=== PATIENT | female | born 1950 | race Caucasian/White ===

== ENCOUNTER 2019-11-10 07:57 | Day surgery (SDC) | payer MEDICARE, OTHER ==
[~2019-11-10] VITALS: Ht 167.6 cm; Wt 65.8 kg
[2019-11-10] MEDS ORDERED: FLUT1DIS2 IH (08:39)
[2019-11-10] MEDS ORDERED: AMLO2.5T45 PO (08:39)
[2019-11-10] MEDS ORDERED: UBID10CA4 PO (08:39)
[2019-11-10] MEDS ORDERED: ASPI-1497 PO (08:39)
[2019-11-10] MEDS ORDERED: ATOR10TA PO (08:39)
[2019-11-10] MEDS ORDERED: LIDOCAINE HCL 1% 20ML VIAL (Pyxis) INJ ONE (09:26)
[2019-11-10] MEDS ORDERED: ASPIRIN/SOD BICARB/CITRIC ACID 324MG TAB EFF ONE (09:29)
[2019-11-10] MEDS ORDERED: FENTANYL CITRATE/PF 50MCG/ML 2ML VIAL ONE (09:39)
[2019-11-10] MEDS ORDERED: IOHEXOL-300 100 ML BOTTLE ONE (09:39)
[2019-11-10] MEDS ORDERED: MIDAZOLAM HCL 2 MG/2 ML VIAL ONE (09:39)
[2019-11-10] MEDS ORDERED: IODIXANOL 320MG/ML 100 ML BOTTLE IV ONE (09:39)
[2019-11-10] MEDS ORDERED: MORPHINE SULFATE 2 MG/ML CPJ (NOT FOR IM USE) IV PRN (10:15)
[2019-11-10] MEDS ORDERED: ACETAMINOPHEN 325MG TABLET PO PRN (10:15)
[2019-11-10] MEDS ORDERED: ONDANSETRON HCL 4MG/2ML INJ IV PRN (10:15)
[2019-11-10] MEDS ORDERED: ATROPINE SULFATE 1MG/10ML SYR IV PRN (10:15)
[2019-11-10 10:47] LABS: BG BASE EXCESS -0.7 mmol/L (-2.0-2.0); BG CARBOXYHEMOGLOBIN 0.2 % (0.5-1.5); BG DEOXYHEMOGLOBIN 1.7 % (0.0-5.0); BG FRACTION INSPIRED OXYGEN 32; BG HCO3 ACT 20.8 mmol/L (22.0-26.0); BG METHEMOGLOBIN 0.2 % (0.0-1.5); BG OXYGEN SATURATION 98.3 % (92.0-98.5); BG OXYHEMOGLOBIN 97.9 % (94.0-97.0); BG PCO2 26.6 mmHg (35.0-45.0); BG PH 7.512 (7.350-7.450); BG PO2 123.4 mmHg (75.0-100.0); BG SAMPLE SITE RIGHT RADIAL; BG TOTAL HEMOGLOBIN 13.6 g/dL (12.0-18.0); BG VENT MODE NASAL CANNULA
[2019-11-10] MEDS ORDERED: NITROGLYCERIN 50MCG/ML 10ML VIAL (CATH LAB) IV ONE (15:58)
[2019-11-10] MEDS ORDERED: HEPARIN SODIUM 1,000 UNIT/1ML VIAL IV ONE (15:58)
[2019-11-10] MEDS ORDERED: NICARDIPINE 100MCG/ML 10ML VIAL (CATH LAB) IV ONE (15:58)
== END 2019-11-10 15:20 | disposition home or self-care (01) ==
LOC: CCL 07:57
PROVIDERS: ATTEND Specialist
DX: I25.10 Atherosclerotic heart disease of native coronary artery without angina pectoris (principal); R93.1 Abnormal findings on diagnostic imaging of heart and coronary circulation; J45.909 Unspecified asthma, uncomplicated; E78.5 Hyperlipidemia, unspecified; Z79.82 Long term (current) use of aspirin; Z79.899 Other long term (current) drug therapy; Z95.0 Presence of cardiac pacemaker
CPT/HCPCS: 36600; 82375; 82805; 93458; 99152; C1769; C1887; C1893; J1644; J2250; J3010; J3490; Q9967; G0500

== ENCOUNTER 2020-11-08 07:53 | Inpatient (IN) | payer MEDICARE, OTHER ==
[~2020-11-08] VITALS: Ht 167.6 cm; Wt 68.0 kg
[~2020-11-08 07:53] MED LIST: AMLO2.5T45 PO; ASPI-1497 PO; ATOR10TA PO; FLUT1DIS2 IH; UBID10CA4 PO
[2020-11-08] MEDS ORDERED: *PATIENT'S OWN MEDICATION STORAGE XX SCH (11:45)
[2020-11-08 12:00] VITALS: BP 155/63
[2020-11-08] MEDS ORDERED: ONDANSETRON HCL 4MG/2ML INJ IV PRN (12:00)
[2020-11-08 13:07] LABS: BASOPHILS % 0.3 % (0.0-2.0); EOSINOPHILS % 2.9 % (0.0-5.0); HEMATOCRIT. 39.6 % (36.0-48.0); HEMOGLOBIN. 13.3 g/dL (12.0-16.0); LYMPHOCYTES % 20.7 % (20.0-50.0); MEAN CORPUSCULAR HEMOGLOBIN 29.5 pg (28.0-32.0); MEAN PLATELET VOLUME 9.1 fl (7.4-10.4); MONOCYTES % 5.7 % (2.0-8.0); NEUTROPHILS % 70.4 % (40.0-76.0); PLATELET 206 x1000/uL (130-400); RED BLOOD CELL COUNT 4.49 mill/uL (4.2-5.4); RED CELL DISTRIBUTION WIDTH 14.3 % (11.6-14.6)
[2020-11-08 13:13] LABS: PARTIAL THROMBOPLASTIN TIME 25.6 sec (23.4-31.0); PROTHROMBIN TIME 10.4 sec (9.6-11.0)
[2020-11-08 13:16] LABS: CHLORIDE 113 mEq/L (98-107)
[2020-11-08 13:50] VITALS: BP 155/63
[2020-11-08] MEDS ORDERED: CLONIDINE 0.1MG TABLET PO PRN (15:00)
[2020-11-08 16:00] VITALS: BP 140/65
[2020-11-08] MEDS: FAMOTIDINE 20MG TABLET PO SCH (17:37)
[2020-11-08] MEDS: ATORVASTATIN CALCIUM 20MG TABLET PO SCH (17:38)
[2020-11-08] MEDS: AMLODIPINE 10MG TABLET PO SCH (17:39)
[2020-11-08 20:00] VITALS: BP 135/52
[2020-11-08] MEDS ORDERED: ATORVASTATIN CALCIUM 10MG TABLET PO SCH (21:00)
[2020-11-09] VITALS (25 sets, daily range): BP systolic 110–165; BP diastolic 59–81
[2020-11-09 05:51] LABS: CHLORIDE 112 mEq/L (98-107)
[2020-11-09 06:30] LABS: BASOPHILS % 0.4 % (0.0-2.0); EOSINOPHILS % 3.8 % (0.0-5.0); HEMATOCRIT. 43.6 % (36.0-48.0); HEMOGLOBIN. 14.7 g/dL (12.0-16.0); LYMPHOCYTES % 28.5 % (20.0-50.0); MEAN CORPUSCULAR HEMOGLOBIN 29.8 pg (28.0-32.0); MEAN CORPUSCULAR VOLUME 88.5 fL (81.0-99.0); MEAN PLATELET VOLUME 8.9 fl (7.4-10.4); MONOCYTES % 6.8 % (2.0-8.0); NEUTROPHILS % 60.5 % (40.0-76.0); PLATELET 248 x1000/uL (130-400); RED BLOOD CELL COUNT 4.92 mill/uL (4.2-5.4); RED CELL DISTRIBUTION WIDTH 14.5 % (11.6-14.6)
[2020-11-09] MEDS ORDERED: AMLODIPINE 2.5MG TABLET PO SCH (09:00)
[2020-11-09] MEDS ORDERED: FENTANYL CITRATE/PF 50MCG/ML 2ML VIAL ONE ×2 (09:53→11:46)
[2020-11-09] MEDS ORDERED: ROCURONIUM BROMIDE 10MG/ML VIAL 5ML IV ONE ×2 (09:53→13:02)
[2020-11-09] MEDS ORDERED: PROPOFOL 200MG/20ML VIAL IV ONE (09:53)
[2020-11-09] MEDS ORDERED: SUCCINYLCHOLINE CHLORIDE 200MG/10ML IV ONE (09:54)
[2020-11-09] MEDS ORDERED: MIDAZOLAM HCL 2 MG/2 ML VIAL ONE (09:54)
[2020-11-09] MEDS ORDERED: ONDANSETRON HCL 4MG/2ML INJ ONE (09:54)
[2020-11-09] MEDS ORDERED: GLYCOPYRROLATE 0.2 MG/ML 2ML VIAL ONE (09:54)
[2020-11-09] MEDS ORDERED: PHENYLEPHRINE HCL 10 MG/ML 1ML (IV VIAL) IV ONE ×2 (09:54→09:55)
[2020-11-09] MEDS ORDERED: STERILE WATER FOR INJECTION 10ML VIAL ONE (09:55)
[2020-11-09] MEDS ORDERED: LIDOCAINE HCL/PF 1% 10 MG/ML 5ML VIAL ONE (09:55)
[2020-11-09] MEDS ORDERED: EPHEDRINE SULFATE 50MG/ML VIAL ONE (09:55)
[2020-11-09] MEDS ORDERED: BACITRACIN 15GM TUBE TOP ONE (09:57)
[2020-11-09] MEDS ORDERED: BUPIVACAINE HCL 0.5% (5MG/ML) 50ML ONE (09:58)
[2020-11-09] MEDS ORDERED: SKIN ADHESIVE 0.7 GM EA TOP ONE ×2 (09:58→12:21)
[2020-11-09] MEDS ORDERED: BACITRACIN 50,000 UNITS/VIAL ONE (09:58)
[2020-11-09] MEDS ORDERED: SODIUM CHLORIDE 0.9% INJ 10ML FLUSH IVF ONE (09:58)
[2020-11-09] MEDS ORDERED: CEFAZOLIN SODIUM 1000MG/VIAL ONE (11:33)
[2020-11-09] MEDS ORDERED: NEOSTIGMINE METHYLSULFATE 1MG/ML 10 ML VIAL ONE (13:20)
[2020-11-09] MEDS ORDERED: SODIUM CHLORIDE 0.9% 1,000 ML IV ONE (14:15)
[2020-11-09] MEDS ORDERED: MORPHINE SULFATE 2 MG/ML CPJ (NOT FOR IM USE) IV PRN (14:15)
[2020-11-09] MEDS ORDERED: MEPERIDINE HCL/PF 25MG/ML CPJ IV PRN (14:15)
[2020-11-09] MEDS ORDERED: ONDANSETRON HCL 4MG/2ML INJ IV PRN (14:15)
[2020-11-09] MEDS ORDERED: HYDROMORPHONE HCL/PF 2MG/ML (OR) ONE (14:31)
[2020-11-09] MEDS: HYDROMORPHONE HCL/PF 2MG/ML CPJ IV PRN ×4 (14:37→16:38)
[2020-11-09 20:10] LABS: HEMATOCRIT. 40.7 % (36.0-48.0); HEMOGLOBIN. 13.1 g/dL (12.0-16.0); MEAN CORPUSCULAR HEMOGLOBIN 28.7 pg (28.0-32.0); MEAN CORPUSCULAR VOLUME 88.9 fL (81.0-99.0); MEAN PLATELET VOLUME 8.6 fl (7.4-10.4); PLATELET 196 x1000/uL (130-400); RED BLOOD CELL COUNT 4.58 mill/uL (4.2-5.4); RED CELL DISTRIBUTION WIDTH 14.2 % (11.6-14.6)
[2020-11-09 20:13] LABS: CHLORIDE 114 mEq/L (98-107)
[2020-11-09 20:15] LABS: PROTHROMBIN TIME 10.8 sec (9.6-11.0)
[2020-11-09] MEDS: FAMOTIDINE 20MG TABLET PO SCH (20:39)
[2020-11-09] MEDS: TRAMADOL 50MG TABLET PO PRN (20:40)
[2020-11-09] MEDS: AMLODIPINE 10MG TABLET PO SCH (20:40)
[2020-11-09 20:42] LABS: PLATELET ESTIMATE NORMAL
[2020-11-09] MEDS: ATORVASTATIN CALCIUM 20MG TABLET PO SCH (21:34)
[2020-11-10] VITALS (39 sets, daily range): BP systolic 97–169; BP diastolic 51–100
[2020-11-10] MEDS: TRAMADOL 50MG TABLET PO PRN (03:16)
[2020-11-10 06:52] LABS: BASOPHILS % 0.7 % (0.0-2.0); HEMATOCRIT. 38.1 % (36.0-48.0); HEMOGLOBIN. 12.6 g/dL (12.0-16.0); MEAN CORPUSCULAR HEMOGLOBIN 28.9 pg (28.0-32.0); MEAN CORPUSCULAR VOLUME 87.8 fL (81.0-99.0); MEAN PLATELET VOLUME 9.5 fl (7.4-10.4); MONOCYTES % 7.4 % (2.0-8.0); NEUTROPHILS % 83.9 % (40.0-76.0); PLATELET 181 x1000/uL (130-400); RED BLOOD CELL COUNT 4.35 mill/uL (4.2-5.4); RED CELL DISTRIBUTION WIDTH 14.7 % (11.6-14.6)
[2020-11-10] MEDS: ACETAMINOPHEN 325MG TABLET PO PRN (07:11)
[2020-11-10 08:25] LABS: CHLORIDE 111 mEq/L (98-107)
[2020-11-10] MEDS: MORPHINE SULFATE 2 MG/ML CPJ (NOT FOR IM USE) IV PRN ×2 (12:00→16:35)
[2020-11-10] MEDS: FAMOTIDINE 20MG TABLET PO SCH (18:32)
[2020-11-10] MEDS: AMLODIPINE 10MG TABLET PO SCH (18:32)
[2020-11-10] MEDS: ATORVASTATIN CALCIUM 20MG TABLET PO SCH (18:32)
[2020-11-10] MEDS ORDERED: MORPHINE SULFATE 2 MG/ML CPJ (NOT FOR IM USE) IV SCH (20:30)
[2020-11-11] VITALS (18 sets, daily range): BP systolic 100–154; BP diastolic 53–73
[2020-11-11] MEDS: ACETAMINOPHEN 325MG TABLET PO PRN (06:03)
[2020-11-11 06:42] LABS: BASOPHILS % 0.5 % (0.0-2.0); EOSINOPHILS % 1.2 % (0.0-5.0); HEMATOCRIT. 40.3 % (36.0-48.0); HEMOGLOBIN. 13.5 g/dL (12.0-16.0); LYMPHOCYTES % 11.8 % (20.0-50.0); MEAN CORPUSCULAR HEMOGLOBIN 29.2 pg (28.0-32.0); MEAN CORPUSCULAR VOLUME 87.3 fL (81.0-99.0); MEAN PLATELET VOLUME 8.5 fl (7.4-10.4); NEUTROPHILS % 78.5 % (40.0-76.0); PLATELET 232 x1000/uL (130-400); RED BLOOD CELL COUNT 4.62 mill/uL (4.2-5.4); RED CELL DISTRIBUTION WIDTH 14.4 % (11.6-14.6)
[2020-11-11 07:16] LABS: CHLORIDE 107 mEq/L (98-107)
[2020-11-11] MEDS ORDERED: POTASSIUM CHLORIDE 20MEQ TABLET SR PO NR (10:30)
== END 2020-11-11 13:45 | disposition home or self-care (01) | DRG 165 ==
LOC: 6EST 07:53 → CVICU 11-09 13:19 → 3WST 11-09 17:00 → 5EST 11-09 17:03
PROVIDERS: ADMIT Internal Medicine; ATTEND Internal Medicine
PROC: 0BJ08ZZ Inspection of Tracheobronchial Tree, Via Natural or Artificial Opening Endoscopic (ICD-10-PCS; principal; 2020-11-09)
PROC: 0BBJ4ZZ Excision of Left Lower Lung Lobe, Percutaneous Endoscopic Approach (ICD-10-PCS; 2020-11-09)
PROC: 07B74ZX Excision of Thorax Lymphatic, Percutaneous Endoscopic Approach, Diagnostic (ICD-10-PCS; 2020-11-09)
PROC: 3E0T3BZ Introduction of Anesthetic Agent into Peripheral Nerves and Plexi, Percutaneous Approach (ICD-10-PCS; 2020-11-09)
DX: R91.8 Other nonspecific abnormal finding of lung field (principal); R59.0 Localized enlarged lymph nodes; I10 Essential (primary) hypertension; J84.10 Pulmonary fibrosis, unspecified; J45.909 Unspecified asthma, uncomplicated; K21.9 Gastro-esophageal reflux disease without esophagitis; Z20.822 Contact with and (suspected) exposure to COVID-19; I25.10 Atherosclerotic heart disease of native coronary artery without angina pectoris; Z95.0 Presence of cardiac pacemaker; Z79.899 Other long term (current) drug therapy; Z85.43 Personal history of malignant neoplasm of ovary
CPT/HCPCS: 36415; 71045; 71250; 80048; 80053; 84484; 85025; 86850; 86900; 87070; 87075; 87102; 87116; 87426; 88305; 88312; 88331; 93005; 97162; A4216; J0330; J0690; J1170; J2175; J2250; J2270; J2370; J2405; J2704; J2710; J3010; J3490

== ENCOUNTER → 2025-06-16 | Outpatient (CLI) | payer MEDICARE, OTHER ==
[~2025-06-16] MED LIST changes: +BARIUM SULFATE 450ML ORAL SUSP ONE
== END | disposition home or self-care (01) ==
LOC: CT 09:04
PROVIDERS: ATTEND Internal Medicine Gastroenterology
DX: R10.84 Generalized abdominal pain (principal); J98.4 Other disorders of lung; Z95.0 Presence of cardiac pacemaker; Z98.890 Other specified postprocedural states
CPT/HCPCS: 74176